=== PATIENT | male | born 1955 | race Caucasian/White ===

== ENCOUNTER 2019-01-25 15:08 | Emergency (ER) | payer OTHER ==
[~2019-01-25] VITALS: Ht 175.3 cm; Wt 80.0 kg
[~2019-01-25 15:08] MED LIST: ADLT ASA LOW81 MG PO; GOUT; IBUPROFEN600 MG PO; MECLIZINE25 MG PO; THORAZINE50 MG PO; [UNRECOGNIZED DRUG - REMARK]
[2019-01-25 15:54] LABS: HEMATOCRIT 42.3 % (39.0-50.0); IMMATURE GRANULOCYTES 0.3 % (0.0-5.0); MEAN CELL VOLUME 93.4 fL CALC (80.0-100.0); MEAN CORPUSCULAR HGB 30.9 pG CALC (26.0-32.0); MEAN CORPUSCULAR HGB CONC 33.1 g/L CALC (32.0-36.0); NEUT# 3.55 thou/uL (1.82-7.42); RED BLOOD COUNT 4.53 mill/uL (4.70-6.10); RED CELL DISTRI WIDTH 13.1 % (11.5-15.5)
[2019-01-25] MEDS ORDERED: CALCIUM500 M4 PO (16:03)
[2019-01-25] MEDS ORDERED: [UNRECOGNIZED DRUG - OTHER] PO (16:03)
[2019-01-25 16:10] VITALS: BP 178/98
[2019-01-25 16:10] LABS: ALBUMIN 4.2 g/dL (3.2-5.0); ALKALINE PHOSPHATASE 65 u/l (38-126); ANION GAP 12 (6-22 (CALC)); BILIRUBIN, TOTAL 0.6 mg/dL (0.0-1.4); BUN 30 mg/dL (8-23); BUN/CREATININE RATIO 28 (12-20 (CALC)); CARBON DIOXIDE 25 mmol/l (22-30); CHLORIDE 104 mmol/l (95-108); CREATININE 1.1 mg/dL (0.7-1.3); GFR > 60 ML/MIN (>=60 (CALC)); GFR FOR AFR.AMER. > 60 ML/MIN (>=60 (CALC)); POTASSIUM 4.4 mmol/l (3.5-5.1); SODIUM 137 mmol/l (137-146); TOTAL PROTEIN 6.8 g/dL (6.3-8.2)
[2019-01-25 16:11] LABS: ACT PARTIAL THROMBO TIME 26.2 SECONDS (20.0-32.5); PROTHROMBIN TIME 10.2 SECONDS (9.0-12.5); SGOT/AST 32 u/l (19-48)
== END 2019-01-25 16:10 | DRG 914 ==
LOC: ED 15:08
DX: S41.141A Puncture wound with foreign body of right upper arm, initial encounter (principal); S45.101A Unspecified injury of brachial artery, right side, initial encounter; W45.0XXA Nail entering through skin, initial encounter